=== PATIENT | female | born 1970 ===

== ENCOUNTER 2017-11-17 22:50 | Emergency (ER) | payer SELFPAY ==
[~2017-11-17] VITALS: Ht 175 cm; Wt 63.0 kg
[2017-11-18 02:10] VITALS: BP 152/93
== END 2017-11-18 02:10 | disposition home or self-care (01) ==
LOC: ED 22:50
DX: S92.342A Displaced fracture of fourth metatarsal bone, left foot, initial encounter for closed fracture (principal); S92.352A Displaced fracture of fifth metatarsal bone, left foot, initial encounter for closed fracture; Y93.01 Activity, walking, marching and hiking; Y92.838 Other recreation area as the place of occurrence of the external cause; M79.672 Pain in left foot
CPT/HCPCS: L4386